=== PATIENT | male | born 1945 | race Caucasian/White ===

== ENCOUNTER 2025-08-03 06:45 | Day surgery (SDC) | payer MEDICARE, BC ==
[2025-07-14 08:39] VITALS: BP 133/63
[~2025-08-03] VITALS: Ht 177.8 cm; Wt 84.6 kg
[2025-08-03] VITALS (13 sets, daily range): BP systolic 101–144; BP diastolic 47–72
[~2025-08-03 06:45] MED LIST: Acetaminophen650 M1 PO; CeFAZolin Sodium 2,000 MG in NS 100 ML IV SCH; Chlorhexidine Mouth Care 15 ML UDC MT SCH; ECONAZOLE NITRA30 GM; LAMO25 PO; LAMOTRIGINE100 M1 PO; MOUNJARO2.5 MG/0.5 SQ; OMEP20ER PO; OMEPRAZOLE 20 MG; PRAVASTATIN SOD40 MG PO; PRAVASTATIN TAB 40M; QUETIAPINE FUMA5012 PO; Tranexamic Acid 100 ML IV SCH; VENL150ER PO
[2025-08-03] MEDS ORDERED: HYDROmorphone HCl/Pf 1MG SYR IV PRN ×2 (07:10→09:25)
[2025-08-03] MEDS ORDERED: Albuterol 2.5 MG/3 ML VIAL INH PRN (07:10)
[2025-08-03] MEDS ORDERED: Prochlorperazine Edisylate 10 mg Vial IV PRN (07:10)
[2025-08-03] MEDS ORDERED: FentaNYL Citrate 50 MCG/ML 2 ML Injection IV PRN ×2 (07:10→07:15)
[2025-08-03] MEDS ORDERED: Ondansetron HCl 2 MG / ML 2ML Vial IV PRN ×2 (07:10→09:25)
[2025-08-03] MEDS ORDERED: Ropivacaine 0.5% HCl/Pf 123.125 MG,EPINEPHrine HCL 0.25 MG,Ketorolac Tromethamine 15 MG... INFIL SCH (07:30)
--- NOTE | 2025-08-03 08:32 | NUR ---
Ambulatory in Day Surgery. History, Chart, Medications and Allergies reviewed before start of procedure. Patient confirms NPO status and agrees with scheduled surgery. Pre-Op teaching done. Pt verbalizes understanding. Patient States Post-Procedure ride home has been arranged. Pt belongings placed underneath gurney for safekeeping. Pt glasses taken to PACU for safkeeping.
[2025-08-03] MEDS ORDERED: Ondansetron HCl 2 MG / ML 2ML Vial ONE (08:52)
[2025-08-03] MEDS ORDERED: Dexamethasone Sod Phos 10 MG/ML 1ML VIAL ONE (08:52)
[2025-08-03] MEDS ORDERED: FLU VACC TS2025(65UP)/MF59C/PF 45 MCG/0.5 ML SYRINGE IM SCH (09:25)
[2025-08-03] MEDS ORDERED: Magnesium Hydroxide Conc 10 ML UDC PO PRN (09:25)
[2025-08-03] MEDS ORDERED: Metoclopramide HCl 5MG / ML 2ML Vial IV PRN (09:25)
[2025-08-03] MEDS ORDERED: ePHEDrine Sulfate 50 MG/ML 1ML Injection ONE (09:29)
[2025-08-03] MEDS ORDERED: Phenylephrine HCl 100 MCG/ML-NS 10MLSYR (1MG/10ML) ONE (09:40)
--- NOTE | 2025-08-03 11:10 | NUR ---
ARRIVAL TO UNIT PT IS A/OX4. DENIES N/V AT THIS TIME. PT IS TAKING IN SOME SNACKS PROVIDED. CALL LIGHT IN REACH AND EXPLAINED. FAMILY IN ROOM. PT IS ABLE TO WIGGLE TOES AND REPORTS SOME SENSATION AT THIS TIME. CRYO IN PLACE. PERSONAL BELONGINGS RETURNED TO PT.
[2025-08-03] MEDS ORDERED: ASPI81CH PO (11:39)
[2025-08-03] MEDS ORDERED: CeFAZolin Sodium 2,000 MG in NS 100 ML IV SCH (16:00)
--- NOTE | 2025-08-03 18:06 | NUR ---
SHIFT SUMMARY POD 0 R TKA PT IS A/OX4. SBA W/ FWW AND GB. TOLERATING PO INTAKE, DENIES N/V. PT IS UNABLE TO VOID. PT REFUSED BLADDER SCAN AND STRAIGHT CATH FROM [id number], OFFERED MULTIPLE TIMES AND PROVIDED EDUCATION. DR. RAMIRES NOTIFIED. PT AGREED TO CATHETER AND BLADDER SCAN AROUND 1700, PT INITIALLY WOULD ONLY AGREE TO CATHETER IF HE COULD DC W/ IT. DR RAMIRES WAS MADE AWARE AND APPROVED THAT PLAN. AFTER INSERTING THE CATHETER PT DECIDED HE DID NOT WANT TO DC W/ CATHETER AND WILL STAY THE NIGHT UNTIL HE CAN VOID IND. CATHETER REMOVED. PAIN MANAGED PER EMAR.
[2025-08-04 03:40] LABS: BASOPHILS ABSOLUTE AUTO 0.01 K/mm3 (0.00-0.23); BASOPHILS PERCENT AUTO 0 % (0-2); EOSINOPHILS ABSOLUTE AUTO 0.01 K/mm3 (0.00-0.68); EOSINOPHILS PERCENT AUTO 0 % (0-6); Hematocrit 33.7 % (37.0-53.0); Hemoglobin 11.3 g/dL (13.5-17.5); IMMATURE GRAN ABSOLUTE AUTO 0.03 K/mm3 (0.00-0.10); IMMATURE GRAN PERCENT AUTO 0 % (0-1); LYMPHOCYTES ABSOLUTE AUTO 1.56 K/mm3 (0.84-5.20); LYMPHOCYTES PERCENT AUTO 15 % (21-46); MONOCYTES ABSOLUTE AUTO 1.18 K/mm3 (0.16-1.47); MONOCYTES PERCENT AUTO 11 % (4-13); Mean Corpuscular HGB Conc 33.5 g/dL (31.5-36.5); Mean Corpuscular Volume 92 fL (80-100); NEUTROPHILS ABSOLUTE AUTO 7.92 K/mm3 (1.96-9.15); NEUTROPHILS PERCENT AUTO 74 % (41-73); NRBC ABSOLUTE 0.00 K/mm3 (0.00-0.02); NRBC Auto 0.0 /100 WBC (0.0-0.2); Platelet Count 167 K/mm3 (150-400); RDW Coefficient Variation 12.6 % (11.7-14.2); RDW Standard Deviation 42.1 fL (35.1-46.3)
[2025-08-04 03:57] LABS: Anion Gap 9.0 mmol/L (3-11); Blood Urea Nitrogen 28.0 mg/dL (8-24); CO2, Blood 28.0 mmol/L (21-32); Calcium, Blood 8.2 mg/dL (8.5-10.1); Chloride, Blood 103.0 mmol/L (98-108); Creatinine, Blood 1.22 mg/dL (0.60-1.20); Glucose, Blood 174.0 mg/dL (70-99); Potassium, Blood 4.5 mmol/L (3.5-5.5); Sodium, Blood 135.0 mmol/L (136-145)
--- NOTE | 2025-08-04 04:30 | NUR ---
SHIFT SUMMARY JOSE WAS ALERT AND FULLY ORIENTED ON ASSESSMENT. PT PAIN WELL CONTROLLED THIS SHIFT. PT DENIES NAUSEA, CHEST PAIN, SOB. PT SENSATION AND CIRCULATION TO BLE INTACT. PT INSCISION DRESSING C/D/I. PT WALKING AND VOIDING APPROPRIATELY. FIRST VOID OF SHIFT WAS BLOODY FROM CATHETER TRAUMA, BUT CLEARED T/O SHIFT. NO ACUTE EVENTS THIS SHIFT.
[2025-08-04 05:24] VITALS: BP 120/57
[2025-08-04 07:59] VITALS: BP 136/64
--- NOTE | 2025-08-04 10:44 | NUR ---
DISCHARGE NOTE PT IS A/OX4. TOLERATING PO INTAKE, DENIES N/V. PT IS VOIDING WELL. PT WAS ABLE TO WORK WITH PHYSICAL THERAPY TWICE PRIOR TO DC. EDUCATION PROVIDED TO PT AND SPOUSE, BOTH VERBALIZED UNDERSTANDING OF EDUCATION. ALL PERSONAL BELONGINGS LEFT W/ PT. ESCORTED OUT VIA WC AT 1046.
== END 2025-08-04 10:46 | disposition home or self-care (01) ==
LOC: ORSCMMR 06:45 → ORD 08:15 → ORSCMMR 08:15 → SURS 10:57 → ORSCMMR 08-04 10:46
PROVIDERS: Orthopaedic Surgery
PROC: 0SRD0JA Replacement of Left Knee Joint with Synthetic Substitute, Uncemented, Open Approach (ICD-10-PCS; principal; 2025-08-03 08:15)
DX: M17.12 Unilateral primary osteoarthritis, left knee (principal); I25.10 Atherosclerotic heart disease of native coronary artery without angina pectoris; E78.5 Hyperlipidemia, unspecified; K21.9 Gastro-esophageal reflux disease without esophagitis; F31.9 Bipolar disorder, unspecified; I73.00 Raynaud's syndrome without gangrene; Z79.899 Other long term (current) drug therapy
CPT/HCPCS: 36415; 73560-LT; 80048; 85025; 97110; 97116; 97116-CQ; 97162; 97530-CQ; A9270; C1713; C1776; J0166; J0690; J0735; J1100; J1885; J2371; J2405; J2704; J2795; J7120

== ENCOUNTER → 2025-08-10 | Outpatient (CLI) | payer MEDICARE, BC ==
[~2025-08-10] MED LIST changes: +ASPI81CH PO; -CeFAZolin Sodium 2,000 MG in NS 100 ML IV SCH; -Chlorhexidine Mouth Care 15 ML UDC MT SCH; -Tranexamic Acid 100 ML IV SCH
== END | disposition home or self-care (01) ==
LOC: LAB SHORT 14:37 → LAB 14:37
DX: R35.0 Frequency of micturition (principal)
CPT/HCPCS: 87086